=== PATIENT | female | born 1955 | race Caucasian/White ===

== ENCOUNTER → 2019-01-06 | Outpatient (CLI) | payer BC ==
--- NOTE | 2019-01-07 09:21 | REP ---
HISTORY: Pain after trauma. COMPARISON: None. There is a Colles' fracture. Electronically Signed by Mando Schwartz DO 01/07/2019 10:03 A
== END ==
LOC: M WUC 16:30
PROVIDERS: ATTEND Physician Assistant
DX: S60.211A Contusion of right wrist, initial encounter (principal); X58.XXXA Exposure to other specified factors, initial encounter; Y92.89 Other specified places as the place of occurrence of the external cause; Y93.9 Activity, unspecified; Y99.9 Unspecified external cause status